=== PATIENT | female | born 1945 | race African-American/Black ===

== ENCOUNTER 2024-12-09 14:03 | Emergency (ER) | payer BC ==
[~2024-12-09] VITALS: Ht 157.5 cm; Wt 58.0 kg
[2024-12-09 14:40] VITALS: O2SAT 98
[2024-12-09] MEDS ORDERED: AMOX1TAB16 MT (18:03)
[2024-12-09] MEDS ORDERED: FLUT15.844 BOTHNSTRLS (18:03)
[2024-12-09 18:21] VITALS: BP 118/75; PULSE 89; RESP 18; TEMP 37.05852; O2SAT 99
== END 2024-12-09 18:23 | disposition home or self-care (01) ==
LOC: ER 14:03
DX: J32.9 Chronic sinusitis, unspecified (principal); E03.9 Hypothyroidism, unspecified; J44.9 Chronic obstructive pulmonary disease, unspecified; I10 Essential (primary) hypertension; Z88.8 Allergy status to other drugs, medicaments and biological substances; Z98.890 Other specified postprocedural states; Z90.710 Acquired absence of both cervix and uterus
CPT/HCPCS: 71045; 99283